=== PATIENT | male | born 1975 | race African-American/Black ===

== ENCOUNTER 2025-03-24 14:17 | Outpatient (CLI) | payer BC, SELFPAY ==
--- NOTE | 2025-03-24 14:29 | XR_ITS ---
FINAL REPORT CLINICAL HISTORY: Right thumb fx f/u FINDINGS: RIGHT HAND Three views demonstrate no acute fracture or dislocation. There is subtle irregularity at the base of the distal first phalanx which may be related to old fracture. The visualized joint spaces are normally aligned. The soft tissues are unremarkable. IMPRESSION: No acute bony abnormality. Reviewed, Interpreted and Dictated by Carey Greene MD Transcribed by Heather Hough Authenticated and . [facility]
== END 2025-03-24 23:59 | disposition home or self-care (01) ==
LOC: RAD 14:18
PROVIDERS: PCP Family Medicine; Visit Provider Orthopaedic Surgery
DX: S62.521A Displaced fracture of distal phalanx of right thumb, initial encounter for closed fracture (principal)
CPT/HCPCS: 73130

== ENCOUNTER 2025-04-14 13:25 | Outpatient (CLI) | payer BC, SELFPAY ==
--- OUTSIDE RECORDS SUMMARY | 2025-02-20 07:30 | XMS_ITS | Encounter Summary ---
Author Organization [facility] Address [address] [place] [address] Phone [email or web address] Care Team Providers Care Pawn Shop Keeper Name Role Phone Provider, No Primary Care Provider Unavailabl e Reason for Visit * Reason Comments Upper body pain / injury / swelling Righ t hand thumb Encounter Details Date Type Department Care Team (Late st Contact Info) Description 02/20/2025 7:30 AM EDT Office Visit [place] [address] [facility] [address] [place] [address] Treasure Valdivia, RN [address] [place] [address] Encounter for fitness for duty examination (Primary Dx) Social History Tobacco Use Types Packs/Day Years Used Date Smoking Tobacco: Every Day Cigarettes Smokeless Tobacco: Current Snuff Tobacco Cessation:Ready to Q uit: Not Asked; Counseling Given: Not Answered Intimate Partner Violence Answer Date R ecorded Insults You Not on file 02/02/2021 Threatens You Not on file 02/02/2021 Screams at You Not on file 02/02/2021 Physically Hurt Not on file 02/02/2021 Intimate Partner Violence Score Not on file 02/02/2021 Depression Answer Date Recorded PHQ Total Score 0 07/18/2023 Stress Answer Date Recorded Stress in your Life Not on file 08/26/2024 Dealing with Stress 3 08/26/2024 Sex and Gender Information Value Date Recorded Sex Assigned at Not on file Legal Sex Male 7:15 AM CDT Gender Identity Not on file Sexual Orientation Not on file documented as of this encounter Last Filed Vital Signs Vital Sign Reading Time Taken Comments Blood Pressure 120/81 02/20/2025 7:12 AM EDT Pulse 56 02/20/2025 7:12 AM EDT Temperature 36.8 C (98.2 F) 02/20/2025 7:12 AM EDT Respiratory Rate - - Oxygen Saturation - - Inhaled Oxygen Concentration - - Weight 88.5 kg (195 lb) 02/20/2025 7:12 AM EDT Height 177.8 cm (5' 10 ) 02/20/2025 7:12 AM EDT Body Mass Index 27.98 02/20/2025 7:12 AM EDT documented in this encounter Patient Instructions * Patient Instructions* Treasure Valdivia RN - 02/20/2025 7:30 AM EDT TM states he can not do full duty or has concerns that it may make symptoms worse. Advised to see PCP office / UTC or ER today. RTC once cleared to full duty. STD info given. documented in this encounter Progress Notes * Treasure Valdivia RN - 02/20/2025 7:30 AM EDT Images from the original note were not included. Subjective Johnny Hurd is a 49 y.o. 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 Personal fit for duty. Right thumb pain. Reports today is his first day back to work from PTO this week, -Mon. He reports he noticed pain in Right thumb, IP joint Monday night. Reports no specific LISETH. He did working in the yard that day using his weed eater. No insect bite that he can recallor specific injury at home. Reports no open wound. Right thumb swelling. Pain greater at IP joint but swelling extends up thumb. Decrease ROM d/t pain and swelling. No redness. (+) warmth. He states pain worsened yesterday and he used ice and ibuprofen. This am he has used ibuprofen. Pain rated 7-8/10. Prior GUTIERREZ at work on right hand years ago Reports hx of cortisone injection in hand in past. No specific hx noted by steam clean machine operator to right thumb. He has reported pain or injury to group for right hand or thumb prior to today's visit. 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 He likes his new job. Denies recent incident last week at work. LDW was Monday02/14/25. (Worked 1/2 day). Denies n/t. Aches and throbbing at times . He does not have a PCP. Triage nurse: Treasure Valdivia RN HPI History Reviewed: Tobacco Allergies Meds Problems Med Hx Surg Hx Objective Visit Vitals BP 120/81 (Patient Position: Sitting) Pulse 56 Temp 98.2 ??F Ht 5' 10 Wt 195 lb BMI 27.98 kg/m?? Smoking Status Every Day BSA 2.09 m?? Review of Systems PHQ-9 Total Score: 0 (10/01/2024 3:50 PM) Physical Exam Limited ROM. He state he might could attempt to work but it may make pain and swelling worse. Advised our clinic can not recommend light duty. He is does not want to leave but agrees itis best to have medical treatment for his hand. Right thumb swelling and warmth. Decrease ROM. TTP right IP joint and CMC. No specific LISETH noted. No open wound, redness or streaking noted. No fever, chills or body aches. No hx of arthritis or gout noted with triage. Assessment: as noted ICD-10-CM ICD-9-CM 1. Encounter for fitness for duty examination Z02.89 V70.5 Right thumb pain / swelling No orders of the defined types were placed in this encounter. Patient Instructions TM states he can not do full duty or has concerns that it may make symptoms worse. Advised to see PCP office / UTC or ER today. RTC once cleared to full duty. STD info given. documented in this encounter Plan of Treatment Not on file documented as of this encounter Visit Diagnoses Diagnosis Encounter for fitness for duty examination- Primary documented in this encounter Care Teams Pawn Shop Keeper Relationship Specialty Start Date End Date Provider, CRISTHIAN Mendoza [id number] PCP - General Claim Inspector 08/08/23 documented as of this encounter
--- OUTSIDE RECORDS SUMMARY | 2025-02-25 12:33 | XMS_ITS | Encounter Summary ---
Author Organization [facility] Address [address] [place] [address] Care Team Providers Care Coordinator Volunteer Services Name Role Phone Rosalind Shell NP Primary Care Provider Reason for Referral * Diagnostic X-Ray (Routine) - New Request Specialty Diagnoses / Procedures Referred By Angella lepe Referred To Contact Diagnoses Swelling of limb Procedures XR hand 3 views right Rosalind Shell NP [address] [place] [address] Phone: tel: fax: Referral ID Status Reason Start Date Expiration Date V isits Requested Visits Authorized [id number] New Request 02/25/2025 02/25/2026 1 1 Reason for Visit * Diagnostic X-Ray (Routine) - New Request Specialty Diagnoses / Procedures Referred By Angella lepe Referred To Contact Diagnoses Swelling of limb Procedures XR hand 3 views right Rosalind Shell NP [address] [place] [address] Phone: tel: fax: Referral ID Status Reason Start Date Expiration Date V isits Requested Visits Authorized [id number] New Request 02/25/2025 02/25/2026 1 1 Encounter Details Date Type Department Care Team (Latest Contact Info) Description 02/25/2025 12:33 PM EDT - 02/25/2025 11:59 PM EDT Hospital Encounter [facility] Diagnostic Imaging [address] [place] [phone] Rosalind Shell, WATERWORKS OPERATOR [address] [place], [place] [id number] Swelling of limb Discharge Disposition: Home or Self Care Social History Tobacco Use Types Packs/Day Years Used Date Smoking Tobacco: Never Assessed Sex and Gender Information Value Date Recorded Sex Assigned at Not on file Legal Sex Male 11:14 AM CDT Gender Identity Not on file Sexual Orientation Not on file documented as of this encounter Plan of Treatment Not on file documented as of this encounter Procedures Procedure Name Priority Date/Time Associated Diagnosis Comments XR HAND 3 VIEWS RIGHT Routine 02/25/2025 12:41 PM EDT Swelling of limb documented in this encounter Results * XR hand 3 views right (02/25/2025 12:41 PM EDT) Anatomical Region Laterality Modality Hand X-Ray 02/25/2025 1:36 PM EDT Impressions 02/25/2025 3:33 PM EDT Findings are concerning for possible volar aspect digit distal phalangeal base fracture, correlate clinically. Moderate soft tissue swelling of the first digit. Images personally reviewed, interpreted and dictated by FRANCO Burton. Narrative 02/25/2025 3:33 PM EDT CLINICAL INDICATION: RT THUMB SWELLING AND PAIN AT IP JOINT PLEASE INCLUDE THUMB EXAMINATION TECHNIQUE: XR HAND 3 VIEWS RIGHT COMPARISON: None. FINDINGS: There is cortical irregularity and lucency along the volar aspect of the first digit distal phalangeal base, concerning for nondisplaced fracture. Moderate soft tissue swelling of the first digit. Procedure Note Chung Olmos MD - 02/25/2025 CLINICAL INDICATION: RT THUMB SWELLING AND PAIN AT IP JOINT PLEASE INCLUDE THUMB EXAMINATION TECHNIQUE: XR HAND 3 VIEWS RIGHT COMPARISON: None. FINDINGS: There is cortical irregularity and lucency along the volar aspect of the first digit distal phalangeal base, concerning for nondisplaced fracture. Moderate soft tissue swelling of the first digit. IMPRESSION: Findings are concerning for possible volar aspect digit distal phalangeal base fracture, correlate clinically. Moderate soft tissue swelling of the first digit. Images personally reviewed, interpreted and dictated by FRANCO Burton. Rosalind Shell NP IMG DIAGNOSTIC IMAGING ORDERABLES Final Result documented in this encounter Visit Diagnoses Diagnosis Swelling of limb documented in this encounter Care Teams Coordinator Volunteer Services Relationship Specialty Start Date End Date Rosalind Shell [place] [address] PCP - General Nurse Practitioner 02/25/25 documented as of this encounter
--- NOTE | 2025-04-14 13:27 | XR_ITS ---
FINAL REPORT CLINICAL HISTORY: Right thumb fx FINDINGS: RIGHT HAND Three views of the right hand were obtained and compared to prior exam from 03/24/2025. There is an indistinct, nondisplaced fracture of the first proximal phalanx distal aspect which is more conspicuous than on prior exam. However, there has been no further displacement. There is no evidence of periosteal reaction. Generalized osteopenia is noted. IMPRESSION: First proximal phalanx fracture without callus formation or periosteal reaction. Recommend continued follow-up. Reviewed, Interpreted and Dictated by Marisa Naidu MD Transcribed by Heather Hough Authenticated and [facility]
--- OUTSIDE RECORDS SUMMARY | 2025-04-14 13:33 | XMS_ITS | Encounter Summary ---
Author Organization [facility] Address [address] [place] [address] Care Team Providers Care Vault Manager Name Role Phone Rosalind Shell NP Primary Care Provider Encounter Details Date Type Department Care Team (Latest Contact Info) Description 02/25/2025 Travel Social History Tobacco Use Types Packs/Day Years Used Date Smoking Tobacco: Never Assessed Sex and Gender Information Value Date Recorded Sex Assigned at Not on file Legal Sex Male 11:14 AM CDT Gender Identity Not on file Sexual Orientation Not on file documented as of this encounter Plan of Treatment Not on file documented as of this encounter Visit Diagnoses Not on filedocumented in this encounter Care Teams Vault Manager Relationship Specialty Start Date End Date Rosalind Shell NP [address] [place] [address] PCP - General Nurse Practitioner 02/25/25 documented as of this encounter
--- OUTSIDE RECORDS SUMMARY | 2025-04-14 13:34 | XMS_ITS | Encounter Summary ---
Author Organization [facility] Address [address] [place] [address] Care Team Providers Care Gis Database Administrator Name Role Phone Rosalind Shell NP Primary Care Provider Reason for Referral * Diagnostic X-Ray (Routine) - New Request Specialty Diagnoses / Procedures Referred By Contac t Referred To Contact Diagnoses Swelling of limb Procedures XR hand 3 views right Rosalind Shell NP [address] [place] [address] Phone: tel: fax: Referral ID Status Reason Start Date Expiration Date V isits Requested Visits Authorized [id number] New Request 02/25/2025 02/25/2026 1 1 Encounter Details Date Type Department Care Team (Late st Contact Info) Description 02/25/2025 Outside Orders [facility] Admitting [address] [place] [phone] Rosalind Shell NP [address] [place] [address] Swelling of limb (Primary Dx) Social History Tobacco Use Types Packs/Day Years Used Date Smoking Tobacco: Never Assessed Sex and Gender Information Value Date Recorded Sex Assigned at Not on file Legal Sex Male 11:14 AM CDT Gender Identity Not on file Sexual Orientation Not on file documented as of this encounter Plan of Treatment Not on file documented as of this encounter Results * XR hand 3 [...] dictated by FRANCO Burton. Rosalind Shell NP [facility] DIAGNOSTIC IMAGING ORDERABLES Final Result documented in this encounter Visit Diagnoses Diagnosis Swelling of limb- Primary Swelling of limb documented in this encounter Care Teams Gis Database Administrator Relationship Specialty Start Date End Date Rosalind Shell NP [address] [place] [phone] PCP - General Nurse Practitioner 02/25/25 documented as of this encounter
--- OUTSIDE RECORDS SUMMARY | 2025-04-14 13:34 | XMS_ITS | Clinical Summary ---
Author Organization [facility] Address [address] [place] [address] Care Team Providers Care Custom Clothier Name Role Phone Rosalind Shell NP Primary Care Provider Encounters Date Type Department Care Team Description 02/25/2025 12:33 PM EDT - 02/25/2025 11:59 PM EDT Hospital Encounter [facility] Diagnostic Imaging [address] [place] [address] Rosalind Shell NP Swelling of limb Discharge Disposition: Home or Self Care 02/25/2025 Travel 02/25/2025 Outside Orders [facility] Admitting [address] [place] [address] Rosalind Shell NP Swelling of limb (Primary Dx) from Last 3 Months Social History Tobacco Use Types Packs/Day Years Used Date Smoking Tobacco: Never Assessed Sex and Gender Information Value Date Recorded Sex Assigned at Not on file Legal Sex Male 11:14 AM CDT Gender Identity Not on file Sexual Orientation Not on file Plan of Treatment Health Maintenance Due Date Last Done Comments CT Colonography 1976 Colonoscopy 1976 Colorectal Cancer Screening 1976 FOBT/FIT 1976 Fit-DNA (Cologuard) 1976 Sigmoidoscopy 1976 Depression Screening (12+) 1988 Tobacco Cessation Counseling and Screening (12+) 1988 HIV Screening 1991 Hepatitis C Screening 1994 DTAP/TDAP/TD VACCINES (1 - Tdap) 1995 Lipid Panel 2011 COVID-19 VACCINE (3 - 2023-2 5 season) 2024 05/12/2021, 04/21/2021 Influenza Vaccine (Season Ended) 2025 Pneumococcal Vaccine: 0-49 Years Aged Out No longer eligible b ased on patient's age to complete this topic Procedures Procedure Name Priority Date/Time Associated Diagnosis Comments XR HAND 3 VIEWS RIGHT Routine 02/25/2025 12:41 PM EDT Swelling of limb from Last 3 Months Results * XR hand 3 views right [...] NP IMG DIAGNOSTIC IMAGING ORDERABLES Final Result from Last 3 Months Insurance BLUE CROSS/BLUE SHIELD Care Teams Custom Clothier Relationship Specialty Start Date End Date Rosalind Shell NP [address] [place] [address] PCP - General Nurse Practitioner 02/25/25
--- OUTSIDE RECORDS SUMMARY | 2025-04-14 13:34 | XMS_ITS | Clinical Summary ---
Author Organization [facility] Address [address] [place] [address] Phone [email or web address] Care Team Providers Care Dispatcher Service Name Role Phone Provider, No Primary Care Provider Unavailabl e Allergies No known active allergies Medications No known medications Active Problems Problem Noted Date Diagnosed Date Chest pain 08/16/2012 Overview (03/21/2018): Tobacco use disorder 09/22/2010 Overview (03/21/2018): Pain in joint, ankle and foot 09/22/2010 Overview (03/21/2018): Visit for occupational health examination 2008 Overview (03/21/2018): Examination for medicolegal reason 04/14/2009 Overview (03/21/2018): Other examination of ears and hearing 07/29/2008 Overview (03/21/2018): Encounters Date Type Department Care Team Description 02/20/2025 7:30 AM EDT Office Visit [facility] [address] [place] [address] Treasure Valdivia, RN Encounter for fitness for duty examination (Primary Dx) from Last 3 Months Social [...] on file Sexual Orientation Not on file Last Filed Vital Signs Vital Sign Reading Time Taken Comments Blood Pressure 120/81 02/20/2025 7:12 AM EDT Pulse 56 02/20/2025 7:12 AM EDT Temperature 36.8 C (98.2 F) 02/20/2025 7:12 AM EDT Respiratory Rate 16 10/01/2024 4:43 PM EST Oxygen Saturation 99% 05/14/2024 5:09 PM EDT Inhaled Oxygen Concentration - - Weight 88.5 kg (195 lb) 02/20/2025 7:12 AM EDT Height 177.8 cm (5' 10 ) 02/20/2025 7:12 AM EDT Body Mass Index 27.98 02/20/2025 7:12 AM EDT Plan of Treatment Health Maintenance Due Date Last Done Comments Dental Cleaning/Exam 1976 HIV Screening 1976 Hepatitis C Screening 1976 Annual Preventive Exam 1994 Hep B Infection Screening - Triple Screen 1994 Hepatitis B Immunization (1 of 3 - 19+ 3-dose series) 1995 Pneumococcal: Ped (0 to 5 Yrs) and At-Risk Member (6 to 64 Yrs) (1 of 2 - PCV) 1995 Tetanus Diphtheria and Pertussis Immunization (1 - Tdap) 1995 Colorectal Cancer Screening 2006 Covid-19 Immunization (3 - season) 2024 05/12/2021, 04/21/2021 Influenza Immunization (Season Ended) 2025 HIB Immunization Aged Out No longer e ligible based on patient's age to complete this topic HPV Immunization Aged Out No longer e ligible based on patient's age to complete this topic Hepatitis A Immunization Aged Out No longer eligible based on patient's age to complete this topic Polio Immunization Aged Out No longer eligible based on patient's age to complete this topic [facility] [id number] OPT OUT NO COPAY NB Care Teams Dispatcher Service Relationship Specialty Start Date End Date Provider, CRISTHIAN Mendoza [address] PCP - General Supervisor/Port Director 08/08/23
--- OUTSIDE RECORDS SUMMARY | 2025-04-14 13:34 | XMS_ITS | Referral Summary ---
Author Organization [facility] [employer] Address [address] [place] [address] Care Team Providers Care Director Translation Name Role Phone Rosalind Shell NP Primary Care Provider Encounters Date Type Department Care Team Description 02/25/2025 Travel 02/25/2025 12:33 PM EDT - 02/25/2025 11:59 PM EDT Hospital Encounter [facility] Diagnostic Imaging [address] [place] [address] Rosalind Shell NP Swelling of limb Discharge Disposition: Home or Self Care 02/25/2025 Outside Orders [facility] Admitting [address] [place] [address] Rosalind Shell NP Swelling of limb (Primary Dx) from Last 3 Months Social History Tobacco Use Types Packs/Day Years Used Date Smoking Tobacco: Never Assessed Sex and Gender Information Value Date Recorded Sex Assigned at Not on file Legal Sex Male 11:14 AM CDT Gender Identity Not on file Sexual Orientation Not on file Plan of Treatment Not on file Procedures Procedure Name Priority Date/Time Associated Diagnosis [...] dictated by FRANCO Burton. Rosalind Shell NP [facility] DIAGNOSTIC IMAGING ORDERABLES Final Result from Last 3 Months Insurance BLUE CROSS/BLUE SHIELD Care Teams Director Translation Relationship Specialty Start Date End Date Rosalind Shell NP [address] [phone] PCP - General Nurse Practitioner 02/25/25
== END 2025-04-14 23:59 | disposition home or self-care (01) ==
LOC: RAD 13:26
PROVIDERS: PCP Nurse Practitioner Family; Visit Provider Orthopaedic Surgery
DX: S62.511A Displaced fracture of proximal phalanx of right thumb, initial encounter for closed fracture
CPT/HCPCS: 73130

== ENCOUNTER 2025-05-05 13:08 | Outpatient (CLI) | payer BC, SELFPAY ==
--- NOTE | 2025-05-05 13:12 | XR_ITS ---
FINAL REPORT CLINICAL HISTORY: rt hand pain COMPARISON: 04/14/2025 FINDINGS: RIGHT HAND Three views demonstrate no acute fracture or dislocation. There is an old healed fifth metacarpal fracture. No joint space narrowing is seen at the first MCP joint with questionable erosions. This can be seen with infectious arthritis or other inflammatory arthritis. 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 IMPRESSION: Progressive joint space narrowing at the first MCP joint with probable erosions which could be seen with septic or inflammatory arthritis. Reviewed, Interpreted and Dictated by Marisa Naidu MD Transcribed by Heather Hough Authenticated and . [facility]
--- OUTSIDE RECORDS SUMMARY | 2025-05-05 13:24 | XMS_ITS | Data Portability ---
Author Organization CRISTHIAN MARGARITO [facility] Address [address] [address] [facility] [address] [place] [address] Care Team Providers Care Chinchilla Machine Operator Name Role Phone JENNY FERRIS Senior Restaurant Manager Assessment Encounter Date Assessment Date Assessment LastModified by Organization Details LastModified Time 08/15/2023 08/15/2023 Patient with signs of mild right long trigger finger. Discussion was had with patient in clinic today regarding treatment options including both conservative and surgical management. My recommendation was to begin with conservative management to include a corticosteroid injection of the involved trigger finger, to which patient consented for in clinic today. If this fails to improve symptoms or should symptoms return, I explained that we could either attempt one additional corticosteroid injection versus proceed with surgical trigger finger release at that time. Patient will continue onsite therapy and brtn-stn-fxxblke medication as needed. Patient will return in 3 weeks for repeat evaluation. If doing well at that time we will discuss return to work without restrictions. bdevers Not available 08/15/2023 12:14:45 09/05/2023 09/05/2023 Patient with significant improvement in right long trigger finger symptoms. He will continue therapy working on work hardening and conditioning as he is now cleared to return to work without restrictions. Follow-up in 5 weeks for final assessment and to ensure no setbacks and I will declare him MMI at that time if doing well. Ultimately should he develop recurrent symptoms, we would then discuss moving forward with more definitive surgical intervention. bdevers Not available 09/05/2023 14:11:09 10/10/2023 10/10/2023 Patient with continued resolution of his right long trigger finger symptoms. Okay to continue working without restrictions. He has now reached MMI for this episode. However, we did discuss possibility of potential recurrence over time that may necessitate further treatment with either repeat injection versus surgical trigger finger release. He can continue home exercises as needed. Pjem-ewt-mznnqis medication as needed for any mild recurrent symptoms. Patient will follow up in clinic on an as-needed basis should additional questions or concerns arise. bdevers Not available 10/10/2023 13:29:15 Plan of Treatment Reminders Order Date Submit Date Provider Last Modified By Organization Details Last Modified Time Details Appointments None record ed. Lab None record ed. Referral None record ed. Procedures None record ed. Surgeries None record ed. Imaging None record ed. Medication Orders None record ed. Patient TargetsNo targets recorded. Patient Instructions Encounter Date Encounter Id Patient Instructions Last Modified By Organization Details Last Modified Time 08/15/2023 [id number] Trigger Finger-LC bdevers Not availab le 08/15/2023 12:15:36 Reason for Referral None Reported. 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 Procedures Surgical History Date Name Laterality Status Provider Name and Address Organization Details Recorded Time Injection Trigger Finger Ortho completed Leighton Hess [facility] 08/15/2023 11:48:59 Imaging Results None recorded. Procedure Notes None recorded. Medical Equipment None Reported. Allergies No known drug allergies Medications Not known to be on any medication Vitals Date Recorded Body height Body mass index (BMI) Body weight Provider Name and Address Organization Details Last Updated DateTime 08/15/2023 177.8 cm 27.3 kg/m2 91234.55 g Diane Henriquez [facility] 08/15/2023 11:16:59 Date Recorded Body height Body mass index (BMI) Body weight Provider Name and Address Organization Details Last Updated DateTime 09/05/2023 177.8 cm 27.3 kg/m2 74760.55 g [facility] 09/05/2023 13:52:22 Date Recorded Body height Body mass index (BMI) Body weight Provider Name and Address Organization Details Last Updated DateTime 10/10/2023 177.8 cm 27.3 kg/m2 92449.55 g [facility] 10/10/2023 13:23:47 Social History None recorded. Functional Status None recorded. Mental Status None recorded. Family History Nothing Reported. Medical History No medical history recorded. Past Encounters Encounter ID Performer Location Encounter Start Date Encounter Closed Date Diagnosis/Indication Diagnosis SNOMED-CT Code Diagnosis ICD10 Code Diagnosis Note [id number] RUDI CLINTON MD [facility] [address] [place] [address] 08/15/2023 10:51:44 08/15/2023 12:03:24 Acquired trigger finger 2132749 M65.331 -Right long finger (CSI: 08/15/2023 ) [id number] RUDI CLINTON MD [facility] [address] [place] [address] 09/05/2023 13:49:45 09/05/2023 14:06:32 Acquired trigger finger 0419333 M65.331 -Right long finger (CSI: 08/15/2023 ) [id number] RUDI CLINTON MD [facility] [address] [place] [address] 10/10/2023 13:20:56 10/10/2023 13:29:14 Acquired trigger finger 2143782 M65.331 -Right long finger (CSI: 08/15/2023 ) Health Concerns Section Related Observation LastModified by Organization Detai ls LastModified Time None Recorded Concern Status LastModified by Organization Details LastModified Time None Recorded Advance Directives Directive None Recorded Payers Insurance Date Sequence Insurance Name Policy Number Policy Uriarte Covered Member ID Uriarte Member ID Guarantor Name 08/15/2023 KELLIE Hurd Notes Date Note Type Note Provider Name and Address Organization Details Recorded Time 08/15/2023 text/html Patient is a 47 y/o RHD male who works at [employer]. He presents as a workers comp consultation for evaluation of right long finger pain. Reports onset of pain and soreness at the base of the finger 1 month ago during work with use, but denies specific injury. Denies catching and locking. Treatment thus far is consisted of DIP extension splinting, onsite therapy, lcaw-cls-logjjao medication, and he is currently on work restrictions. Consult requested by:Primary Care Physician: Hand dominance: RightLocation: Right Lf Pain level: 5 /10 Date of injury: 07/10/23Duration: 5 weeks Recent Surgery: NoProcedure:Date of surgery:Surgeon(If Known): In office procedure? No Previous upper extremity surgery? NoProcedure:Approxi mate date of surgery:Surgeon (if known):Have you or an immediate family member ever seen our hand surgeons before? YesWife saw Dr. Clinton Currently employed?: Full timeEmployer: [facility] HospitalOccupation: [employer] Are they currently working? Yes on restrictions Is this injury associated with a Workers Compensation claim? Yes Patient arrived in: orthotic removed Chain Dyer Strength: right: left: New: Mr. Hurd is here for pain in the rt LF. He does not recall one specific injury but reports he holds a pain brush all day which as caused pain in the LF. He states the base of his finger is the most painful. Denies triggering, popping and locking but reports he feels a pull at his A1 pully when extending his finger. RUDI CLINTON [place] [facility] [place], [address], [facility] 08/15/2023 12:15:48 09/05/2023 text/html Patient returns to the clinic today for a follow-up. Reports resolution of catching and locking following right long finger injection on 08/15/2023. He does report some mild soreness in the finger with therapy strengthening exercises. In summary, patient is a 47 y/o RHD male who works at [employer]. He presented as a workers comp consultation for evaluation of right long finger pain. Reported onset of pain and soreness at the base of the finger 1 month ago during work with use, but denied specific injury. Denied catching and locking. Treatment thus far is consisted of DIP extension splinting, onsite therapy, ldcl-xkf-ickicip medication, and he is currently on work restrictions. Consult requested by:Primary Care Physician: Hand dominance: RightLocation: Right Lf Pain level: 2 /10 sore Date of injury: 07/10/23Duration: 8 weeks Recent Surgery: NoProcedure:Date of surgery:Surgeon(If Known): In office procedure? No Previous upper extremity surgery? NoProcedure:Approxi mate date of surgery:Surgeon (if known):Have you or an immediate family member ever seen our hand surgeons before? YesWife saw Dr. Clinton Currently employed?: Full timeEmployer: [employer]Occupation: [employer] Are they currently working? Yes on restrictions Is this injury associated with a Workers Compensation claim? Yes Patient arrived in: n/a Chain Dyer Strength: right: left: Mr. Hurd is here for pain in the rt LF. No more locking or catching since injection. Working with OT RUDI CLINTON MD [address] [place] [address], [phone], [facility] 09/05/2023 14:11:20 10/10/2023 text/html Patient returns to the clinic today for a follow-up. Reports that the right long finger triggering continues to be resolved. No recurrence with return to work.Consult requested by:Primary Care Physician: Hand dominance: RightLocation: Right Lf Pain level: 0 /10 Date of injury: 07/10/23Duration: 3 months Recent Surgery: NoProcedure:Date of surgery:Surgeon(If Known): In office procedure? Yes- acquired trigger finger rt LF CSI: 08/15/23 Previous upper extremity surgery? NoProcedure:Approxi mate date of surgery:Surgeon (if known):Have you or an immediate family member ever seen our hand surgeons before? YesWife saw Dr. Clinton Currently employed?: Full timeEmployer: [employer]Occupation: [employer] Are they currently working? Yes on restrictions Is this injury associated with a Workers Compensation claim? Yes Patient arrived in: n/a Chain Dyer Strength: right: left: Mr. Hurd is here for recheck of rt LF. Still doing well. He wonders how long the inejction will last RUDI CLINTON MD [address] [place], [address], [place] [facility] 10/10/2023 13:29:26
--- OUTSIDE RECORDS SUMMARY | 2025-05-05 13:25 | XMS_ITS | Clinical Summary ---
Author Organization [facility] Address [address] [place] [address] Phone [email or web address] Care Team Providers Care Insulation Applicator Name Role Phone Provider, No Primary Care [...] Office Visit [facility] [place] [address] [place] [address] Treasure Valdivia, RN Encounter for [...] - season) 2024 05/12/2021, 04/21/2021 Influenza Immunization (#1) 2025 HIB Immunization Aged Out No longer [...] patient's age to complete this topic Insurance OPT OUT NO COPAY NB Care Teams Insulation Applicator Relationship Specialty Start Date End Date Provider, CRISTHIAN Mendoza [id number] PCP - General Reproduction Production Manager 08/08/23
== END 2025-05-05 23:59 | disposition home or self-care (01) ==
LOC: RAD 13:10
PROVIDERS: PCP Nurse Practitioner Family; Visit Provider Orthopaedic Surgery
DX: M25.841 Other specified joint disorders, right hand (principal); R93.6 Abnormal findings on diagnostic imaging of limbs
CPT/HCPCS: 73130